=== PATIENT | female | born 1970 | race Caucasian/White ===

== ENCOUNTER 2018-08-26 13:45 | Day surgery (SDC) | payer BC ==
[2018-08-24 14:05] VITALS: BMI 26.0
[~2018-08-26 13:45] MED LIST: LACTATED RINGERS 1,000 ML IV SCH
--- NOTE | 2018-08-26 13:52 | P.GSHP ---
History of Present Illness H&P Date: 08/26/18 CHIEF COMPLAINT: Colon screen HISTORY OF PRESENT ILLNESS: The patient is a 48-year-old female who presents for colon screen. Lower endoscopy was offered for further evaluation and management. PAST MEDICAL HISTORY: Please see list. PAST SURGICAL HISTORY: Please see list. MEDICATIONS: Please see list. ALLERGIES: Please see list. SOCIAL HISTORY: No illicit drug use FAMILY HISTORY: No reports of Crohn disease or ulcerative colitis. REVIEW OF ORGAN SYSTEMS: CONSTITUTIONAL: No reports of fevers or chills. PHYSICAL EXAM: VITAL SIGNS: Stable GENERAL: Well-developed pleasant in no acute distress. HEENT: No scleral icterus. Extraocular movements grossly intact. Moist buccal mucosa. NECK: Supple without lymphadenopathy. CHEST: Unlabored respirations. Equal bilateral excursions. CARDIOVASCULAR: Regular rate and rhythm. Distal 2+ pulses. ABDOMEN: Soft, nontender, nondistended. MUSCULOSKELETAL: No clubbing, cyanosis, or edema. ASSESSMENT: 1. Colon screen. PLAN: 1. Recommend proceeding with a lower endoscopy Past Medical History Additional Past Medical History / Comment(s): constipation, History of Any Multi-Drug Resistant Organisms: None Reported Past Surgical History: Section Additional Past Surgical History / Comment(s): rt salpingectomy for ectopic , Past Anesthesia/Blood Transfusion Reactions: No Reported Reaction Smoking Status: Current every day smoker - Past Family History Mother Family Medical History: Cancer Medications and Allergies Home Medications Medication Instructions Recorded Confirmed Type Cyanocobalamin (Vitamin B-12) 2,000 mcg PO DAILY 08/24/18 08/24/18 History [Vitamin B-12] Allergies Allergy/AdvReac Type Severity Reaction Status Date / Time No Known Allergies Allergy Verified 08/24/18 13:59
[2018-08-26] MEDS ORDERED: LACTATED RINGERS 1,000 ML IV ONE (13:53)
[2018-08-26] MEDS: LACTATED RINGERS 1,000 ML IV ONE (13:53)
[2018-08-26] MEDS ORDERED: LIDOCAINE 1% 20 ML VIAL (10MG/ML) FOR IV START INTRADERMA ONE (13:56)
[2018-08-26 13:57] VITALS: TEMP 97.5
[2018-08-26] MEDS ORDERED: PROPOFOL 10 MG/ML 20 ML VIAL IV ONE (15:01)
[2018-08-26 15:38] VITALS: BP 129/87; PULSE 79; RESP 17
--- NOTE | 2018-08-26 15:49 | P.PCN ---
Date of Procedure: 08/26/18 Description of Procedure: PREOPERATIVE DIAGNOSIS: Rectal bleeding POSTOPERATIVE DIAGNOSIS: Rectal bleeding Multiple tubular adenomas throughout the colon. External hemorrhoids, grade 3. Scattered diverticulosis OPERATION: Colonoscopy to the ileocecal valve and appendiceal orifice. Colonoscopy with multiple cold forceps biopsies. SURGEON: Kerline Koch MD. ANESTHESIA: MAC. INDICATIONS: The patient is a 48-year-old female who presents with rectal bleeding. Benefits and risks were described and informed consent was obtained. DESCRIPTION OF PROCEDURE: The patient had undergone Gatorade, MiraLAX and Dulcolax prep. She had been brought into the operating room and laid in the left lateral decubitus position. After adequate intravenous sedation, the rectum was examined with 2% lidocaine jelly. External hemorrhoids were encountered. The rectal tone was within normal limits. No lesions were palpated in the rectal vault. An Olympus colonoscope was advanced until the ileocecal valve and appendiceal orifice were clearly viewed. The prep was fair with visualization of the mucosal folds. The scope was removed with visualization of each mucosal fold. Sattered diverticulosis was encountered. Multiple colonic polyps were found and cold forcep biopsy. No evidence of focal colitis was found. Retroflexion of the scope demonstrated grade 3 internal hemorrhoids without active bleeding or inflammation. The colon was desufflated. The patient had tolerated the procedure well. Withdrawal time was over 6 minutes. FINDINGS: Internal hemorrhoids, grade 3 External hemorrhoids, grade 3. No arteriovenous malformations. Scattered diverticulosis Removal of 3 polyps: - Cold forceps biopsy at 60 cm from the anal verge, 4 mm polyp. - Cold forceps biopsy at 75 cm from the anal verge, 4 mm polyp. - Cold forceps biopsy at cecum, 5 mm polyp. No focal colitis. RECOMMENDATIONS: Repeat colonoscopy 3 years, age 51, year 2020 Plan - Discharge Summary New Discharge Prescriptions: No Action Cyanocobalamin (Vitamin B-12) [Vitamin B-12] 2,000 mcg PO DAILY Discharge Medication List Cyanocobalamin (Vitamin B-12) [Vitamin B-12] 2,000 mcg PO DAILY 08/24/18 [ History] Follow up Appointment(s)/Referral(s): Kerline Koch MD [STAFF PHYSICIAN] - As Needed Patient Instructions/Handouts: *Surgery [facility] - (Anesthesia) Endoscopy Discharge Instructions, Colorectal Polyps (DC), Colonoscopy (DC), Hemorrhoids (DC) Activity/Diet/Wound Care/Special Instructions: Repeat colonoscopy, age [age] years old, 2020 REST TODAY, ENCOURAGE FLUIDS AT HOME Discharge Disposition: HOME SELF-CARE
== END 2018-08-26 16:27 | disposition home or self-care (01) ==
LOC: ORWHC2ENDO 13:45
PROVIDERS: ATTEND Surgery Plastic and Reconstructive Surgery
DX: Z12.11 Encounter for screening for malignant neoplasm of colon (principal); K64.8 Other hemorrhoids; D12.0 Benign neoplasm of cecum; K57.90 Diverticulosis of intestine, part unspecified, without perforation or abscess without bleeding; F17.200 Nicotine dependence, unspecified, uncomplicated; K64.4 Residual hemorrhoidal skin tags
CPT/HCPCS: 88305; 88342; 88341; 45380; J2704

== ENCOUNTER → 2018-10-19 | Outpatient (CLI) | payer BC ==
--- NOTE | 2018-10-23 13:09 | MM ---
Reason for exam: screening (asymptomatic). History: Patient is postmenopausal. Family history of breast cancer in mother. MG 3D Screening Mammo W/Cad Bilateral CC and MLO view(s) were taken. The breast tissue is heterogeneously dense. This may lower the sensitivity of mammography. No discrete abnormality. No significant changes when compared with prior studies. ASSESSMENT: Negative, BI-RAD 1 RECOMMENDATION: Routine screening mammogram of both breasts in 1 year.
== END ==
LOC: RADMAMWWP 10:19
PROVIDERS: ATTEND Obstetrics & Gynecology Obstetrics
DX: Z12.31 Encounter for screening mammogram for malignant neoplasm of breast (principal); Z80.3 Family history of malignant neoplasm of breast
CPT/HCPCS: 77063; 77067

== ENCOUNTER 2019-03-09 16:52 | Emergency (ER) | payer BC ==
[2019-03-09 17:50] LABS: Basophils % (A) 0 %; Eosinophils # (A) 0.3 k/uL (0-0.7); Eosinophils % (A) 3 %; HCT 42.7 % (34.0-46.0); HGB 14.2 gm/dL (11.4-16.0); Lymphocytes # (A) 3.8 k/uL (1.0-4.8); Lymphocytes % (A) 42 %; MCH 30.3 pg (25.0-35.0); MCHC 33.2 g/dL (31.0-37.0); MCV 91.3 fL (80.0-100.0); Mean Platelet Volume 6.9; Monocytes # (A) 0.3 k/uL (0-1.0); Monocytes % (A) 4 %; Neutrophils # (A) 4.4 k/uL (1.3-7.7); Neutrophils % (A) 49 %; Platelet Count 270 k/uL (150-450); RBC 4.68 m/uL (3.80-5.40); RDW 13.4 % (11.5-15.5); WBC 8.9 k/uL (3.8-10.6)
[2019-03-09 17:58] LABS: INR 0.9 (<1.2); Partial Thromboplastin Time 26.7 sec (22.0-30.0); Prothrombin Time 9.9 sec (9.0-12.0)
--- NOTE | 2019-03-09 18:00 | ED ---
Chest Pain HPI - General Chief Complaint: Chest Pain Stated Complaint: chest pains-2 days Time Seen by Provider: 03/09/19 17:13 Source: patient, RN notes reviewed, old records reviewed Mode of arrival: ambulatory Limitations: no limitations - History of Present Illness Initial Comments: This is a 41-year-old female the ER for evaluation of chest pain left-sided chest pain left-sided chest pain that wraps around her left breast along the rib cage. Worse with movement worse when she lays on it. History of smoking no history of heart disease no family history of heart disease no history of high blood pressure high cholesterol or diabetes. No recent fevers or cough congestion recent travel history. No leg pain or leg edema MD Complaint: chest pain -: week(s) Onset: awoke with symptoms Pain Location: left chest Severity: mild Severity scale (1-10): 2 Quality: dull Consistency: constant Improves With: nothing Worsens With: nothing Anginal Symptoms: nausea Other Symptoms: cough Treatments Prior to Arrival: none - Related Data Home Medications Medication Instructions Recorded Confirmed Cyanocobalamin (Vitamin B-12) 1,000 mcg PO DAILY 08/24/18 03/09/19 [Vitamin B-12] Allergies Allergy/AdvReac Type Severity Reaction Status Date / Time No Known Allergies Allergy Verified 03/09/19 17:39 Review of Systems ROS Statement: Those systems with pertinent positive or pertinent negative responses have been documented in the HPI. ROS Other: All systems not noted in ROS Statement are negative. EKG Findings - EKG Comments: EKG Findings:: EKG shows NSR rate of 66 HI 150 QRS 74 QTc 398 Past Medical History Additional Past Medical History / Comment(s): constipation, History of Any Multi-Drug Resistant Organisms: None Reported Past Surgical History: Section Additional Past Surgical History / Comment(s): rt salpingectomy for ectopic , Past Anesthesia/Blood Transfusion Reactions: No Reported Reaction Past Psychological History: No Psychological Hx Reported Smoking Status: Current every day smoker Past Alcohol Use History: Occasional Past Drug Use History: None Reported - Past Family History Mother Family Medical History: Cancer General Exam Limitations: no limitations General appearance: alert, in no apparent distress Head exam: Present: atraumatic, normocephalic, normal inspection Eye exam: Present: normal appearance, PERRL, EOMI. Absent: scleral icterus, conjunctival injection, periorbital swelling ENT exam: Present: normal exam, mucous membranes moist Neck exam: Present: normal inspection. Absent: tenderness, meningismus, lymphadenopathy Respiratory exam: Present: normal lung sounds bilaterally. Absent: respiratory distress, wheezes, rales, rhonchi, stridor Cardiovascular Exam: Present: regular rate, normal rhythm, normal heart sounds. Absent: systolic murmur, diastolic murmur, rubs, gallop, clicks GI/Abdominal exam: Present: soft, normal bowel sounds. Absent: distended, tenderness, guarding, rebound, rigid Extremities exam: Present: normal inspection, full ROM, normal capillary refill. Absent: tenderness, pedal edema, joint swelling, calf tenderness Back exam: Present: normal inspection Neurological exam: Present: alert, oriented X3, CN II-XII intact Psychiatric exam: Present: normal affect, normal mood Skin exam: Present: warm, dry, intact, normal color. Absent: rash Course Vital Signs 03/09/19 03/09/19 03/09/19 17:01 18:21 19:30 Temperature 98.5 F Pulse Rate 72 80 70 Respiratory 18 18 14 Rate Blood Pressure 122/80 117/81 124/80 O2 Sat by Pulse 100 99 96 Oximetry - Reevaluation(s) Reevaluation #1: Medical record is reviewed Patient has no change in chest pain here in the ER, pain is reproducible chest wall palpation Chest Pain MDM - MDM 41 female the ER with atypical chest pain no shortness of breath no diaphoresis no provocation factors. Patient has no history of heart disease aside from smoking. Patient has normal troponin here normal EKG as well as CT anginal chest pain normal. Pain is been persistent for one week. Patient can be discharged home to follow-up with primary care Disposition Clinical Impression: Chest pain, Atypical chest pain Disposition: HOME SELF-CARE Condition: Good Instructions (If sedation given, give patient instructions): Chest Pain (ED) Is patient prescribed a controlled substance at d/c from ED?: No Referrals: Jorge Luis Villar MD [Primary Care Provider] - 1-2 days
[2019-03-09 18:02] LABS: ALT 18 U/L (9-52); AST 28 U/L (14-36); African American GFR (CKD) >90 (>60 ml/min/1.73 sqM); Albumin 4.3 g/dL (3.5-5.0); Alkaline Phosphatase 65 U/L (38-126); Anion Gap 8 mmol/L; Blood Urea Nitrogen 13 mg/dL (7-17); Calcium 9.3 mg/dL (8.4-10.2); Carbon Dioxide 26 mmol/L (22-30); Chloride 107 mmol/L (98-107); Glucose 120 mg/dL (74-99); Lipase 87 U/L (23-300); Magnesium 1.9 mg/dL (1.6-2.3); Potassium 3.9 mmol/L (3.5-5.1); Sodium 141 mmol/L (137-145); Total Bilirubin 0.2 mg/dL (0.2-1.3); Total Protein 7.2 g/dL (6.3-8.2)
--- NOTE | 2019-03-09 18:15 | XR ---
EXAMINATION TYPE: XR chest 2V DATE OF EXAM: 03/09/2019 COMPARISON: NONE HISTORY: Chest pain TECHNIQUE: Frontal and lateral views of the chest are obtained. FINDINGS: Heart and mediastinum are normal. Lungs are clear. Diaphragm is normal. Bony thorax is int act. There are chest leads. IMPRESSION: Normal chest
--- NOTE | 2019-03-09 19:00 | CT ---
EXAMINATION TYPE: CT angio chest DATE OF EXAM: 03/09/2019 6:45 PM COMPARISON: None HISTORY: lt sided chest pain x 1 wk[address] pain with inspiration CT DLP: 254.4 mGycm Automated exposure control for dose reduction was used. CONTRAST: CTA scan of the thorax is performed with IV Contrast, patient injected with 100 mL of Isovue 370, pul monary embolism protocol. There are 3-D post processed images.. FINDINGS: There is some patchy mild atelectasis at the left lung base. There is no evidence of a pulmonary mass . There is no pleural effusion. There is no pericardial effusion. There are no hilar masses. There is no mediastinal adenopathy. There are a few paratracheal and mediastinal lymph nodes that measure up to 2 x 1 cm. There is normal contrast opacification of the pulmonary arteries. There are no filling defects. There is low-density 2 cm left adrenal mass suggestive of benign disease. Thoracic spine is intact. I see no bony destructive process. IMPRESSION: SUBSEGMENTAL ATELECTASIS AT THE LEFT LUNG BASE. NO EVIDENCE OF PULMONARY EMBOLISM. SMALL NONSPECIFIC MEDIASTINAL LYMPH NODES.
[2019-03-09 19:34] VITALS: BP 124/80; PULSE 70; RESP 14
[2019-03-09 19:47] VITALS: TEMP 98.6
== END 2019-03-09 19:39 | disposition home or self-care (01) ==
LOC: EC 16:52
DX: R07.89 Other chest pain (principal); R05 Cough; R11.0 Nausea; F17.200 Nicotine dependence, unspecified, uncomplicated; Z79.899 Other long term (current) drug therapy
CPT/HCPCS: 36415; 93005; 83880; 80053; 83690; 83735; 84484; 85025; 85610; 85730; 71046; 71275; 99285; Q9967

== ENCOUNTER → 2020-09-25 | Outpatient (CLI) | payer BC ==
--- NOTE | 2020-09-30 09:58 | MM ---
Reason for exam: additional evaluation requested from prior study. Last mammogram was performed 1 year and 11 months ago. History: Patient is postmenopausal. Family history of breast cancer in mother at age 50 and breast cancer in maternal cousin at age 45. Physical Findings: Nurse did not find any significant physical abnormalities on exam. MG 3D Diag Mammo W/Cad JAY JAY Bilateral CC and MLO view(s) were taken. Prior study comparison: October 19, 2018, bilateral MG 3d screening mammo w/cad. There are scattered fibroglandular densities. No significant new findings when compared with previous films. These results were verbally communicated with the patient and result sheet given to the patient on 09/25/20. ASSESSMENT: Negative, BI-RAD 1 RECOMMENDATION: Routine screening mammogram of both breasts in 1 year. Manage on a clinical basis with regard to right breast pain and swelling. If swelling recurs, patient can be rescanned.
== END | disposition home or self-care (01) ==
LOC: RADMAMWWP 14:40
PROVIDERS: ATTEND Family Medicine
DX: N63.10 Unspecified lump in the right breast, unspecified quadrant (principal); Z78.0 Asymptomatic menopausal state; Z80.3 Family history of malignant neoplasm of breast
CPT/HCPCS: 77062; 77066

== ENCOUNTER → 2024-04-28 | Outpatient (CLI) | payer BC ==
--- NOTE | 2024-04-28 12:21 | XR ---
EXAMINATION TYPE: XR Hip Complete LT DATE OF EXAM: 04/28/2024 12:09 PM CLINICAL INDICATION:Female, 54 years old with history of M25.552 LEFT HIP PAIN; [facility] COMPARISON: None. TECHNIQUE: XR Hip Complete LT; hip was examined in the frontal and lateral projections and a AP pelvi s. FINDINGS: No evidence for acute process, joint dislocation or significant soft tissue swelling. Osteo phyte formation of the superior acetabulum of the hip. There is mild joint space narrowing. IMPRESSION: 1. No evidence for acute process. 2. Mild hip osteoarthrosis.
--- NOTE | 2024-04-28 12:35 | XR ---
EXAMINATION TYPE: XR lumbar spine 2 or 3V DATE OF EXAM: 04/28/2024 12:09 PM CLINICAL INDICATION:Female, 54 years old with history of M25.552 LEFT HIP PAIN; [facility] COMPARISON: None TECHNIQUE: XR lumbar spine 2 or 3V - Frontal, lateral and coned in L5-S1 lateral views of the spine. FINDINGS: No evidence of any acute osseous pathology. No evidence of loss of vertebral body height i s seen. There is normal alignment of the lumbar vertebral bodies. Scattered disc space narrowing. Mul tilevel marginal osteophyte formation throughout the visualized spine. There is facet joint arthropat hy throughout the spine. Scattered at least mild neural foraminal stenosis. Atherosclerosis of the ar terial vasculature. IMPRESSION: 1. No acute fracture. 2. Mild multilevel disc degeneration.
== END | disposition home or self-care (01) ==
LOC: RADXRMAIN 11:28
PROVIDERS: ATTEND Family Medicine
DX: M16.12 Unilateral primary osteoarthritis, left hip (principal); M51.36 Other intervertebral disc degeneration, lumbar region
CPT/HCPCS: 72100; 73502